=== PATIENT | female | born 1995 | race Caucasian/White ===

== ENCOUNTER 2017-03-19 00:34 | Emergency (ER) | payer SELFPAY ==
[2017-03-19 00:41] VITALS: BP 137/87; PULSE 93; TEMP 98; BMI 24.0
--- NOTE | 2017-03-19 00:46 | PDOC ---
History of Present Illness - General Chief Complaint: Injury Stated Complaint: INJURY TO LEFT FOOT/ANKLE Time Seen by Provider: 03/19/17 00:37 - History of Present Illness Initial Comments: This otherwise healthy 21-year-old woman presents with a history of turning her left foot as she was descending stairs a few hours prior to presentation. She subsequently has been having pain with weightbearing along with increasing swelling in the low ankle joint during this time. No previous history of ankle fracture although she has had sprains in the past. Patient did not fall and did not injure any other area of her body. Past History - Past Medical History Allergies/Adverse Reactions: Allergies Allergy/AdvReac Type Severity Reaction Status Date / Time No Known Allergies Allergy Verified 03/19/17 00:35 Home Medications: Ambulatory Orders NK [No Known Home Medication] 03/19/17 Other medical history: DENIES - Psycho/Social/Smoking Cessation Hx Anxiety: No Suicidal Ideation: No Smoking History: Never smoked Have you smoked in the past 12 months: No Information on smoking cessation initiated: No Hx Alcohol Use: No Drug/Substance Use Hx: No Substance Use Type: None Review of Systems - Review of Systems Able to Perform ROS?: Yes Comments:: 12 point review of systems is negative except for what is noted in the history of present illness *Physical Exam - Vital Signs Last Vital Signs Temp Pulse Resp BP Pulse Ox 98 F 93 H 16 137/87 98 03/19/17 00:35 03/19/17 00:35 03/19/17 00:35 03/19/17 00:35 03/19/17 00:35 - Physical Exam Comments: GENERAL:Young adult female in no acute distress, alert and oriented 3 HEAD: Normal with no signs of trauma. EYES: PERRLA, EOMI, sclera anicteric, conjunctiva clear. ENT: Ears normal, nares patent, oropharynx clear without exudates. Dry mucous membranes. NECK: Normal range of motion, supple without lymphadenopathy, JVD, or masses. LUNGS: Breath sounds equal, clear to auscultation bilaterally. No wheezes, and no crackles. HEART:Regular rate and rhythm, normal S1 and S2 without murmur, rub or gallop. ABDOMEN:.normal bowel sounds No guarding,tenderness or rebound.No masses No distention. EXTREMITIES: Left lower extremitymoderate edema/mild tenderness lateral malleolus of ankle without ecchymosis/deformity No ligamentous instability of ankle; no foot tenderness or edema Distal extremity warm and dry with excellent capillary refill. Remainder of the extremity exam is normal NEUROLOGICAL: Cranial nerves II through XII grossly intact. Normal speech. No focal neurological deficits. MUSCULOSKELETAL: Back non-tender to palpation, no CVA tenderness SKIN: Warm, Dry, normal turgor, no rashes or lesions noted. Progress Note - Progress Note Progress Note: Left ankle x-ray shows no evidence of fracture or dislocation; minimal soft tissue swelling is present Viraj wrap applied followed by ankle stirrup splint. Crutches provided and crutch walking instruction given. Patient should elevate and ice area of ankle as much as possible for the next 48 hours. Crutches should be used for ambulation for the next 2-3 days. Next 5-7 days, Viraj wrap should be applied during the day. Ankle stirrup splint should also be applied during the day for the next week. Follow-up with orthopedist within 7-10 days if there is persistent swelling or pain *DC/Admit/Observation/Transfer Diagnosis at time of Disposition: Left ankle sprain Qualifiers: Encounter type: initial encounter Involved ligament of ankle: calcaneofibular ligament Qualified Code(s): S93.412A - Sprain of calcaneofibular ligament of left ankle, initial encounter - Discharge Dispostion Disposition: HOME Condition at time of disposition: Stable - Patient Instructions Printed Discharge Instructions: DI for Ankle Sprain Additional Instructions: Ice/elevation of left ankle the next 48 hours Crutches for ambulation for the next 2-3 days Viraj wrap/ankle splint during the day for the next week Ibuprofen/naproxen/acetaminophen as needed for pain Follow-up with your orthopedist if pain/swelling persists - Post Discharge Activity Work/School Note: Back to Work
[2017-03-19] MEDS ORDERED: traMADol HCL 50 MG TABLET ONE (01:18)
[2017-03-19] MEDS ORDERED: traMADol HCL 50 MG TABLET PO ONE (01:18)
== END 2017-03-19 01:47 | disposition home or self-care (01) ==
LOC: FER 00:34
PROC: 2W3TX1Z Immobilization of Left Foot using Splint (ICD-10-PCS; principal; 2017-03-19)
DX: S93.412A Sprain of calcaneofibular ligament of left ankle, initial encounter (principal); X58.XXXA Exposure to other specified factors, initial encounter; Y93.9 Activity, unspecified; Y92.9 Unspecified place or not applicable; Y99.9 Unspecified external cause status
CPT/HCPCS: 73610-TC-LT; 99281-25